=== PATIENT | female | born 1950 | race Caucasian/White ===

== ENCOUNTER → 2019-07-03 08:30 | Outpatient (BNVA) | payer MEDICARE, OTHER, SELFPAY | PROVIDERS: Family Provider Family Medicine; Visit Provider Family Medicine | DX: E78.5 Hyperlipidemia, unspecified (principal); J44.9 Chronic obstructive pulmonary disease, unspecified; N18.9 Chronic kidney disease, unspecified; R73.03 Prediabetes; E78.2 Mixed hyperlipidemia; I12.9 Hypertensive chronic kidney disease with stage 1 through stage 4 chronic kidney disease, or unspecified chronic kidney disease; N18.3 Chronic kidney disease, stage 3 (moderate); I73.9 Peripheral vascular disease, unspecified | CPT/HCPCS: 80053; 80061; 83036; 85025 ==

== ENCOUNTER 2019-09-07 08:27 | Outpatient (CLI) | payer MEDICARE, OTHER, SELFPAY ==
--- NOTE | 2019-09-07 08:45 | USCV_ITS ---
Sofia Velasquez Age: 68 Gender: F : 1950 Exam Date: 09/07/2019 08:58 Ordering Phys: Danie Nash MD (Andy) ([email or web address]) Technologist: Ana Lilia Mchugh [place]am Location: [facility] [place] Ind[place]: STENT IN PLACE HISTORY: KNOWN AAA WITH REPAIR Diameter (cm) AP x Transverse x Length Velocity (cm/s) Waveform Prox Aorta: 2.81 x 2.43 x 39.50 Mid Aorta: 2.44 x 2.56 x 20.70 Distal Aorta: 4.55 x 4.53 x 7.57 26.70 Right Iliac Prox: 1.50 x 1.74 x 45.50 Left Iliac Prox: 1.69 x 1.67 x 46.20 Stent Prox Landing x x Aneurysmal Sac Max x x Lt Lat Sac Dim Rt Lat Sac Dim Stent Dist Landing x x Right Iliac Stent x x Left Iliac Stent x x Right Renal Art Left Renal Art FINDINGS: Patent aortic stent graft. Aneurysmal sac in the distal abdominal aorta measuring 4.55 x 4.53 cm Moderate diffuse plaques in the abdominal aorta Left iliac artery measuring 1.69 x 1.67 cm and the right iliac, 1.5 x 1.74 cm CONCLUSIONS 1. Patent aortic stent graft 2. Aneurysm sac in the distal aorta measuring 4.55 x 4.53 cm 3. No evidence of endoleak. 4. Ectatic proximal common iliac arteries bilaterally. Compared to the study from 06/13/2018, the aortic stent graft appears to be new. No significant change in the aneurysm size Dr Ryan Avila MD [facility] (Electronically Signed) Final Date: 07 September 2019 20:29 S
== END 2019-09-07 08:28 | disposition home or self-care (01) ==
LOC: US 08:28
PROVIDERS: PCP Family Medicine; Visit Provider Thoracic Surgery (Cardiothoracic Vascular Surgery)
DX: I71.4 Abdominal aortic aneurysm, without rupture (principal)
CPT/HCPCS: 76706

== ENCOUNTER → 2019-09-18 09:30 | Outpatient (BNVA) | payer MEDICARE, OTHER, SELFPAY | PROVIDERS: PCP Family Medicine; Visit Provider Family Medicine | DX: N18.3 Chronic kidney disease, stage 3 (moderate) (principal); Z79.899 Other long term (current) drug therapy | CPT/HCPCS: 80053; 81001; 85025; 87077; 87086; 87186 ==

== ENCOUNTER → 2019-12-05 09:12 | Outpatient (BNVA) | payer MEDICARE, OTHER, SELFPAY | PROVIDERS: PCP Family Medicine; Visit Provider Family Medicine | DX: E11.9 Type 2 diabetes mellitus without complications (principal); E78.2 Mixed hyperlipidemia; I10 Essential (primary) hypertension; N39.0 Urinary tract infection, site not specified | CPT/HCPCS: 80053; 80061; 81000; 83036; 87077; 87086; 87184 ==

== ENCOUNTER → 2020-03-05 10:33 | Outpatient (BNVA) | payer MEDICARE, OTHER, SELFPAY | PROVIDERS: PCP Family Medicine; Visit Provider Family Medicine | DX: N30.01 Acute cystitis with hematuria (principal); E11.9 Type 2 diabetes mellitus without complications; I10 Essential (primary) hypertension; E66.9 Obesity, unspecified; I71.4 Abdominal aortic aneurysm, without rupture; N18.30 Chronic kidney disease, stage 3 unspecified | CPT/HCPCS: 81000; 87086 ==

== ENCOUNTER → 2020-08-19 10:37 | Outpatient (BNVA) | payer MEDICARE, OTHER, SELFPAY | PROVIDERS: PCP Family Medicine; Referring Provider Family Medicine; Visit Provider Family Medicine | DX: E11.9 Type 2 diabetes mellitus without complications (principal); E78.2 Mixed hyperlipidemia; I10 Essential (primary) hypertension | CPT/HCPCS: 80053; 80061; 83036; 83721 ==

== ENCOUNTER 2020-11-08 08:23 | Outpatient (CLI) | payer MEDICARE, OTHER, SELFPAY ==
--- NOTE | 2020-11-08 09:00 | CT_ITS ---
WS: [id number] CTA ABDOMEN PELVIS TECHNIQUE: Noncontrast plus contrast enhanced CTA of the abdominal aorta with coronal and sagittal re formatted images and additional MIP Images. CLINICAL INFORMATION: aaa COMPARISON: DLP: 2246.[address] scans at [facility] use at least one of these dose optimization techniques: automated e xposure control; mA and/or kV adjustment per patient size (includes targeted exams where dose is matc hed to clinical indication); or iterative reconstruction. FINDINGS: Again seen is the infrarenal abdominal aortic aneurysm with peripheral mural thrombus. Endovascular a ortic graft with biiliac extension. Excluded aneurysm sac has decreased in size today. Today this nelson sures approximately 3.6 x 3.7 cm cm AP by transverse compared to 4.8 x 4.8 cm previous. Tiny eccentri c outpouching along the distal aortic graft eccentric to the right consistent with a tiny type III ju nctional endoleak. No evidence of contrast staining in the excluded aneurysm sac on the delayed imagi ng. Moderate aortic atheromatous disease involving the lower thoracic and upper abdominal aorta with theresa pheral irregular mural thrombus. Celiac and SMA are patent. Renal arteries are patent. Emphysematous changes in the lung bases. Normal liver. Normal spleen. Small esophageal hiatal hernia. Normal renal parenchymal enhancement. No hydronephrosis. Small bilateral renal cysts. Tiny fat-conta ining umbilical hernia. Grade 1 anterolisthesis L4 on L5. CT/CT angio abdomen pelvis [id number] IMPRESSION: 1. Prior postoperative changes aortic endograft repair with biiliac extension. 2. Excluded aneurysm sac is decreased in size today measuring 3.7 x 3.6 cm com pared to 4.8 x 4.8 cm previous. 3. Tiny right eccentric outpouching in the distal graft consistent with a tiny type III endoleak. Recommend continued surveillance. 4. Celiac and SMA are patent. Renal arteries are patent. 5. Small esophageal hiatal hernia. 6. No other significant changes from previous.
[2020-11-08 09:26] LABS: Blood Urea Nitrogen 22 mg/dL (8-23)
[2020-11-08] MEDS: iodixanol 320 mg/mL 100mL Btl IV (09:40)
== END 2020-11-08 08:24 | disposition home or self-care (01) ==
PROVIDERS: PCP Family Medicine; Visit Provider Thoracic Surgery (Cardiothoracic Vascular Surgery)
DX: I71.4 Abdominal aortic aneurysm, without rupture (principal); K44.9 Diaphragmatic hernia without obstruction or gangrene
CPT/HCPCS: 74174; 82565; 84520; Q9967

== ENCOUNTER 2021-07-28 16:53 | Emergency (ER) | payer MEDICARE, OTHER, SELFPAY ==
[2021-07-28 17:04] VITALS: BP 213/106; PULSE 76; RESP 18; TEMP 36.8; O2SAT 99; BMI 32.9
--- NOTE | 2021-07-28 17:19 | ECG_ITS ---
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 Measurements Intervals [place] Rate: 78 P: 42 AL: 187 QRS: -36 QRSD: 97 T: -3 QT: 402 QTc: 458 Interpretive Statements SINUS RHYTHM WITH OCCASIONAL ECTOPIC PREMATURE COMPLEXES LEFT AXIS DEVIATION [QRS AXIS < -30] Compared to ECG 10/10/2018 11:46:18 No significant changes Electronically Signed On 07-29-2021 17:56:22 CDT by Chi Alexandre M.D. [id number]
--- NOTE | 2021-07-28 17:24 | USR_ITS ---
PROCEDURE INFORMATION: Exam: US Duplex Scan of Aorta, Inferior Vena Cava, Iliac Vasculature, or Bypass Grafts, Limited Exam date and time: 07/28/2021 5:47 PM Age: 70 years old Clinical indication: Abdominal pain; Acute; Prior surgery; Surgery date: 6+ months; Surgery type: Ao stent; Additional info: HX anuerysm repair TECHNIQUE: Imaging protocol: Real-time duplex ultrasound scan of the Aorta, IVC, iliac vasculature, or bypass grafts in the abdomen with color Doppler flow and spectral waveform analysis with image documentation. Limited or unilateral exam. COMPARISON: 11/08/2020 CTA of the abdomen and pelvis FINDINGS: Aorta: Atherosclerotic changes are again seen in the visualized abdominal aorta. A graft is present in the infrarenal abdominal aorta, which is patent. Mild aneurysmal dilatation of the distal abdominal aorta is noted measuring up to 3 cm. Peak systolic velocities in the abdominal aorta are is follows: proximal = 70 cm/s, mid = 66 cm/s, distal = 33 cm/s. Common iliac arteries: The left common iliac artery peak velocity is 36 cm/s, and the right common iliac artery peak velocity is 111 cm/s. Mild ectasia of the right common iliac artery is noted measuring up to 2.1 cm. Hepatic veins: Arterial sampling in the right kidney shows a peak velocity of 78 cm/s, and in the left kidney demonstrate a peak velocity of 126 cm/s. Other findings: Peak flow velocities in the right and left posterior tibial arteries are both approximately 49 cm/s. Bilateral posterior tibial arteries demonstrate biphasic white patterns. US/[place] [id number] IMPRESSION: 1. Atherosclerosis. An aortic graft is again noted. Evaluation for bypass graft leak is limited. Consider CT angiogram for further assessment. 2. Atherosclerosis and peripheral arterial disease.
--- NOTE | 2021-07-28 17:24 | XRR_ITS ---
PROCEDURE INFORMATION: Exam: XR Chest Exam date and time: 07/28/2021 6:26 PM Age: 70 years old Clinical indication: Dyspnea; Additional info: Dyspnea/cough TECHNIQUE: Imaging protocol: XR of the chest. Views: 1 view. COMPARISON: CR Chest 2 views* [id number] 10/10/2018 12:04 PM FINDINGS: Lungs: The lungs are clear. Pleural spaces: Unremarkable. No pleural effusion. No pneumothorax. Heart/Mediastinum: The heart is normal in size. The aorta is mildly tortuous. Bones/joints: Unremarkable. XR/XR chest 1V portable [id number] IMPRESSION: No acute cardiopulmonary abnormality.
--- NOTE | 2021-07-28 17:26 | ED_ITS ---
Documented by User: Cholo Cruz DO 08/06/21 17:26 HPI - Abdominal Pain General: Chief Complaint: Abdominal Pain Stated Complaint: severe abdominal pain/headache Time Seen by Provider: 07/28/21 17:11 Source: patient Mode of arrival: ambulatory Limitations: no limitations History of Present Illness: 70-year-old female presents emergency room with abdominal pain and headache. She has history of abdominal aortic aneurysm which was repaired several years ago chills as very poorly controlled blood pressure patient is a smoker as well. She has had endoleak in the past. She did take all of her antihypertensives today despite this blood pressure is markedly elevated. She denies any chest pain or shortness of breath MD elicited complaint: abdominal pain Pertinent past history: other (History of AAA repair) Onset (ago): hour(s) Pain Consistency: constant Location: Diffuse Severity: moderate Quality: cramping Radiation: none Migration to: no migration Exacerbating factors: nothing Relieving factors: nothing Associated Symptoms: Reports anorexia, GI cramping, dyspepsia and poor appetite; Denies belching, bloating, change in bowel habits, change in stool character, chills, coffee ground emesis, constipation, diarrhea, dysuria, excessive flatus, fever(s), heartburn, hematochezia, hematuria, hematemesis, fecal incontinence, loose stools, melena, nausea, syncope and vomiting Review of Systems Const: Denies: fever(s), chills, fatigue or malaise ENMT: Denies: throat pain, ear or mastoid pain, nasal discharge or nasal co ngestion Card: Denies: syncope Resp: Denies: dyspnea, productive cough or non-productive cough GI: Reports: GI cramping; Denies: nausea, vomiting, hematemesis, coffee ground emesis, heartburn, diarrhea, constipation, bloating, belching, excessive flatus, fecal incontinence, change in bowel habits, change in stool character, hematochezia or melena : Denies: dysuria or hematuria Skin/Breast: Denies: rash or pruritus PFSH ED PFSH: Medical History Abdominal aortic aneurysm Status post repair with aortic stent graft September 2018 CKD (chronic kidney disease) Essential hypertension History of breast cancer Hyperlipidemia PAD (peripheral artery disease) Bilateral SFA occlusions Prediabetes Pulmonary emphysema Tobacco abuse Type 2 diabetes mellitus Surgical History H/O angioplasty H/O lumpectomy RIGHT SIDE H/O mastectomy RIGHT SIDE H/O tubal ligation H/O: hysterectomy S/P AAA repair S/P cholecystectomy Family History Father Stroke Hypertension Diabetes Hyperlipidemia Mother Stroke Hypertension Diabetes Cancer Hyperlipidemia Social History Quit status (tobacco): not considering quitting Second hand smoke exposure: No Alcohol intake: never Desire information about alcohol rehabilitation?: No Desire information about substance/drug rehabilitation?: No Household members: spouse Marital status: Current occupational status: retired Current occupation: [employer] History of recent travel: No Current gender identity: Female Female Reproductive History: Spontaneous abortions: No Physical Exam Const: COMMON NORMALS: no acute distress GENERAL APPEARANCE: cooperative and comfortable ORIENTATION/CONSCIOUSNESS: Yes awake, Yes oriented to person, Yes oriented to place and Yes oriented to time HENMT: COMMON NORMALS: normocephalic, atraumatic and hearing grossly normal bilaterally HEAD & SCALP: normocephalic and atraumatic Neck/C-Spine: COMMON NORMALS: no JVD Lymph: LYMPHATIC: no lymphadenopathy noted and no lymphedema noted Resp: COMMON NORMALS: normal respiratory effort, No retractions, No use of accessory muscles and clear to auscultation bilaterally AUSCULTATION: clear to auscultation bilaterally Cardio: COMMON NORMALS: no JVD, regular rate, regular rhythm and No murmurs present (Cardio) RATE: regular rate RHYTHM: regular rhythm GI: COMMON NORMALS: Soft to palpation and No hepatosplenomegaly present AUSCULTATION: Yes normoactive bowel sounds PALPATION: Yes Soft to palpation, No Tenderness to palpation present (GI), No Guarding due to palpation present (GI) and Yes No hepatosplenomegaly present Extremity: COMMON NORMALS: normal to inspection, capillary refill normal, no clubbing, cyanosis or edema, no calf tenderness and no pedal edema Neuro: SENSORIUM/ORIENTATION: Yes oriented to person, Yes oriented to place and Yes oriented to time Skin: COMMON NORMALS: no rashes or lesions noted GENERAL SKIN EXAM: no rashes or lesions noted Course Vital Signs: Vital signs: Vital Signs Temperature 98.2 F 07/28/21 17:04 Pulse Rate 80 07/28/21 22:33 Respiratory Rate 16 07/28/21 22:33 Blood Pressure 157/92 07/28/21 22:33 Pulse Oximetry 99 07/28/21 22:33 MDM - Abdominal Pain Medical Decision Making Care signed out to Dr. House at change of shift. See final notes for diagnosis and disposition. Lab Data : 07/28/21 17:40 07/28/21 17:40 Labs/Radiology: Radiology Impressions Aorta Ultrasound 07/28/21 17:24 IMPRESSION: 1. Atherosclerosis. An aortic graft is again noted. Evaluation for bypass graft leak is limited. Consider CT angiogram for further assessment. 2. Atherosclerosis and peripheral arterial disease. Chest X-Ray 07/28/21 17:24 IMPRESSION: No acute cardiopulmonary abnormality. Abdomen/Pelvis CTA 07/28/21 18:22 IMPRESSION: 1. 4 cm infrarenal abdominal aortic aneurysm without rupture. 2. Patent aortic bilateral iliac artery endovascular stent. 3. Severe fatty infiltration of the liver. Laboratory Results WBC 8.5 10^3/uL (4.0-10.0) 07/28/21 17:40 RBC 4.73 10^6/uL (4.1-5.3) 07/28/21 17:40 Hgb 15.0 g/dL (11.5-15.3) 07/28/21 17:40 Hct 44.0 % (37.0-47.0) 07/28/21 17:40 MCV 93.0 fl (81-99) 07/28/21 17:40 MCH 31.7 pg (28.0-34.0) 07/28/21 17:40 MCHC 34.1 g/dL (30.0-36.0) 07/28/21 17:40 RDW 12.3 % (12.1-15.1) 07/28/21 17:40 Plt Count 234 10^3/cmm (130-400) 07/28/21 17:40 MPV 10.4 fL (7.4-10.4) 07/28/21 17:40 Neut % (Auto) 70.0 % 07/28/21 17:40 Lymph % (Auto) 20.6 % 07/28/21 17:40 [place] % (Auto) 7.1 % 07/28/21 17:40 Eos % (Auto) 1.4 % 07/28/21 17:40 Baso % (Auto) 0.7 % 07/28/21 17:40 Neut # (Auto) 5.93 10^3/uL (1.8-7.7) 07/28/21 17:40 Lymph # (Auto) 1.8 10^3/uL (0.8-4.8) 07/28/21 17:40 [place] # (Auto) 0.6 10^3/uL (0.2-0.9) 07/28/21 17:40 Eos # (Auto) 0.1 10^3/uL (0.0-0.8) 07/28/21 17:40 Baso # (Auto) 0.1 10^3/uL (0.0-0.1) 07/28/21 17:40 Nucleated RBC % (auto) 0 % 07/28/21 17:40 Nucleated RBCs # 0.0 /100WBC 07/28/21 17:40 Sodium 131 mmol/L (136-145) L 07/28/21 17:40 Potassium 4.1 mmol/L (3.5-5.1) 07/28/21 17:40 Chloride 96 mmol/L (98-107) L 07/28/21 17:40 Carbon Dioxide 20 mmol/L (22-29) L 07/28/21 17:40 Anion Gap 19.1 (5-19) H 07/28/21 17:40 BUN 16 mg/dL (8-23) 07/28/21 17:40 Creatinine 1.0 mg/dL (0.5-0.9) H 07/28/21 17:40 GFR Calculation Not Reportable 07/28/21 17:40 Glucose 131 mg/dL (65-115) H 07/28/21 17:40 Calculated Osmolality 275 mOsm/kg (285-295) L 07/28/21 17:40 Calcium 9.8 mg/dL (8.5-10.5) 07/28/21 17:40 Total Bilirubin 0.3 mg/dL (0.15-1.2) 07/28/21 17:40 AST 39 U/L (0-32) H 07/28/21 17:40 ALT 27 U/L (0-33) 07/28/21 17:40 Alkaline Phosphatase 102 IU/L (35-105) 07/28/21 17:40 Troponin T Baseline 13 ng/L (0-10) H 07/28/21 17:40 Troponin T 120 Minute 11.61 ng/L (0-10) H 07/28/21 19:35 Delta Troponin T -1.39 ABS# (0-10) L 07/28/21 19:35 Total Protein 7.7 g/dL (6.6-8.7) 07/28/21 17:40 Albumin 4.3 g/dL (3.5-5.2) 07/28/21 17:40 Globulin 3.4 g/dL (1.3-4.6) 07/28/21 17:40 Lipase 50 U/L (13-60) 07/28/21 17:40 Urine Color Yellow (Yellow) 07/28/21 17:41 Urine Appearance Clear (CLEAR) 07/28/21 17:41 Urine pH 6 (5-7) 07/28/21 17:41 Ur Specific [place] 1.015 (1.005-1.030) 07/28/21 17:41 Urine Protein 1+ (Negative) H 07/28/21 17:41 Urine Glucose (UA) Norm (Normal) 07/28/21 17:41 Urine Ketones Negative (Negative) 07/28/21 17:41 Urine Blood Neg (Negative) 07/28/21 17:41 Urine Nitrate Negative (Negative) 07/28/21 17:41 Urine Bilirubin Neg (Negative) 07/28/21 17:41 Urine Urobilinogen Norm mg/dL (Negative) 07/28/21 17:41 Ur Leukocyte Esterase Negative (Negative) 07/28/21 17:41 Urine RBC 0-4 /hpf (0-2) H 07/28/21 17:41 Urine WBC 10-15 /hpf (0-5) H 07/28/21 17:41 Ur Squamous Epith Cells 0-4 /hpf (0-5) H 07/28/21 17:41 Amorphous Sediment Not Reportable 07/28/21 17:41 Urine Bacteria 4+ /hpf (NONE) H 07/28/21 17:41 Urine Mucus 1+ /hpf 07/28/21 17:41 Discharge Plan Discharge Patient Disposition: Home Clinical Impression: Abdominal pain, Dehydration, Bacteriuria Condition: Stable Prescriptions: New Protonix 40 mg tablet,delayed release (DR/EC) 40 mg PO BID 14 Days Qty: 28 0RF ondansetron 4 mg tablet,disintegrating 4 mg PO TID PRN (Reason: nausea and vomiting) Qty: 15 0RF No Action atorvastatin 40 mg tablet 40 mg PO DAILY 90 Days Qty: 90 3RF lisinopril-hydrochlorothiazide 20-12.5 mg tablet 1 tab PO BID 90 Days Qty: 180 3RF garlic 100 mg Tablet 100 mg PO DAILY 0RF Aspir-81 81 mg Tablet,Delayed Release (Dr/Ec) 81 mg PO DAILY 0RF PreserVision AREDS 7,160 unit- 113 mg-100 unit Tablet 2 tab PO BID 0RF Rx Instructions: administer with AM and PM meals Centrum Silver Women 8 mg iron-400 mcg-300 mcg Tablet 1 tab PO DAILY 0RF red yeast rice 600 mg Tablet 600 mg PO DAILY 0RF Rx Instructions: give with meal/snack Discharge Orders: Discharge ED (Routine); Ordered 07/28/21 Ordered By: Keyon House Referrals: Sherry Etienne MD [Primary Care Provider] - Discharge Diet: Advance as tolerated and Clear Liquid Discharge Activity: Increase activity as tolerated Patient Instructions: Urinary Tract Infection in Women (ED), Abdominal Pain (ED), Opioid Safety Activity Restrictions/Additional Instructions: Thank you for visiting the emergency department. You were seen and evaluated for abdominal pain as well as high blood pressure. The exact cause of your symptoms is unclear as no clear source was identified on CT scan. You were found to have bacteria in your urine which may be indicative of urinary tract infection which will be treated. Please follow-up with your primary care provider. Given improvement with treatment in the emergency department I recommend follow-up this week for adjustment of blood pressure medications, pain may increase blood pressure and therefore I am hesitant to prescribe new medication. Please return to the emergency department for worsening symptoms or anything else that you are concerned about and feel needs emergency department evaluation. Sign Out Sign Out Data: Patient Sign Out occurred on 07/28/21 at 18:41. Patient's care was discussed, and care was transferred from to Keyon House MD. Coding Level of Care Code ED Check Writing Machine Operator for Chg Fwd Exam Comprehensive Documented by User: Keyon House MD 08/10/21 22:56 HPI - Abdominal Pain General: Chief Complaint: Abdominal Pain Stated Complaint: severe abdominal pain/headache Time Seen by Provider: 07/28/21 17:11 PFSH ED PFSH: Medical History Abdominal aortic aneurysm Status post repair with aortic stent graft September 2018 CKD (chronic kidney disease) Essential hypertension History of breast cancer Hyperlipidemia PAD (peripheral artery disease) Bilateral SFA occlusions Prediabetes Pulmonary emphysema Tobacco abuse Type 2 diabetes mellitus Surgical History H/O angioplasty H/O lumpectomy RIGHT SIDE H/O mastectomy RIGHT SIDE H/O tubal ligation H/O: hysterectomy S/P AAA repair S/P cholecystectomy Family History Father Stroke Hypertension Diabetes Hyperlipidemia Mother Stroke Hypertension Diabetes Cancer Hyperlipidemia Social History Quit status (tobacco): not considering quitting Second hand smoke exposure: No Alcohol intake: never Desire information about alcohol rehabilitation?: No Desire information about substance/drug rehabilitation?: No Household members: spouse Marital status: Current occupational status: retired Current occupation: [employer] History of recent travel: No Current gender identity: Female Course Vital Signs: Vital signs: Vital Signs Temperature 98.2 F 07/28/21 17:04 Pulse Rate 80 07/28/21 22:33 Respiratory Rate 16 07/28/21 22:33 Blood Pressure 157/92 07/28/21 22:33 Pulse Oximetry 99 07/28/21 22:33 MDM - Abdominal Pain Medical Decision Making Care signed out to Dr. House at change of shift. See final notes for diagnosis and disposition. Care handoff received from Dr. Cruz pending completion of ED evaluation. Laboratory studies with no leukocytosis, normal hemoglobin. Metabolic panel with some evidence of dehydration. Delta troponin negative. Urinalysis with questionable evidence of urinary tract infection. Culture pending. Negative ch est x-ray. No reported evidence of endoleak on CTA, infrarenal abdominal aortic aneurysm without rupture. Discussed results of evaluation with the patient. Blood pressure improved and symptoms improved. Patient comfortable with discharge. Discussed prescriptions and return cautions. Keyon House MD Emergency Medicine Lab Data : 07/28/21 17:40 07/28/21 17:40 Labs/Radiology: Radiology Impressions Aorta Ultrasound 07/28/21 17:24 IMPRESSION: 1. Atherosclerosis. An aortic graft is again noted. Evaluation for bypass graft leak is limited. Consider CT angiogram for further assessment. 2. Atherosclerosis and peripheral arterial disease. Chest X-Ray 07/28/21 17:24 IMPRESSION: No acute cardiopulmonary abnormality. Abdomen/Pelvis CTA 07/28/21 18:22 IMPRESSION: 1. 4 cm infrarenal abdominal aortic aneurysm without rupture. 2. Patent aortic bilateral iliac artery endovascular stent. 3. Severe fatty infiltration of the liver. Laboratory Results WBC 8.5 10^3/uL (4.0-10.0) 07/28/21 17:40 RBC 4.73 10^6/uL (4.1-5.3) 07/28/21 17:40 Hgb 15.0 g/dL (11.5-15.3) 07/28/21 17:40 Hct 44.0 % (37.0-47.0) 07/28/21 17:40 MCV 93.0 fl (81-99) 07/28/21 17:40 MCH 31.7 pg (28.0-34.0) 07/28/21 17:40 MCHC 34.1 g/dL (30.0-36.0) 07/28/21 17:40 RDW 12.3 % (12.1-15.1) 07/28/21 17:40 Plt Count 234 10^3/cmm (130-400) 07/28/21 17:40 MPV 10.4 fL (7.4-10.4) 07/28/21 17:40 Neut % (Auto) 70.0 % 07/28/21 17:40 Lymph % (Auto) 20.6 % 07/28/21 17:40 [place] % (Auto) 7.1 % 07/28/21 17:40 Eos % (Auto) 1.4 % 07/28/21 17:40 Baso % (Auto) 0.7 % 07/28/21 17:40 Neut # (Auto) 5.93 10^3/uL (1.8-7.7) 07/28/21 17:40 Lymph # (Auto) 1.8 10^3/uL (0.8-4.8) 07/28/21 17:40 [place] # (Auto) 0.6 10^3/uL (0.2-0.9) 07/28/21 17:40 Eos # (Auto) 0.1 10^3/uL (0.0-0.8) 07/28/21 17:40 Baso # (Auto) 0.1 10^3/uL (0.0-0.1) 07/28/21 17:40 Nucleated RBC % (auto) 0 % 07/28/21 17:40 Nucleated RBCs # 0.0 /100WBC 07/28/21 17:40 Sodium 131 mmol/L (136-145) L 07/28/21 17:40 Potassium 4.1 mmol/L (3.5-5.1) 07/28/21 17:40 Chloride 96 mmol/L (98-107) L 07/28/21 17:40 Carbon Dioxide 20 mmol/L (22-29) L 07/28/21 17:40 Anion Gap 19.1 (5-19) H 07/28/21 17:40 BUN 16 mg/dL (8-23) 07/28/21 17:40 Creatinine 1.0 mg/dL (0.5-0.9) H 07/28/21 17:40 GFR Calculation Not Reportable 07/28/21 17:40 Glucose 131 mg/dL (65-115) H 07/28/21 17:40 Calculated Osmolality 275 mOsm/kg (285-295) L 07/28/21 17:40 Calcium 9.8 mg/dL (8.5-10.5) 07/28/21 17:40 Total Bilirubin 0.3 mg/dL (0.15-1.2) 07/28/21 17:40 AST 39 U/L (0-32) H 07/28/21 17:40 ALT 27 U/L (0-33) 07/28/21 17:40 Alkaline Phosphatase 102 IU/L (35-105) 07/28/21 17:40 Troponin T Baseline 13 ng/L (0-10) H 07/28/21 17:40 Troponin T 120 Minute 11.61 ng/L (0-10) H 07/28/21 19:35 Delta Troponin T -1.39 ABS# (0-10) L 07/28/21 19:35 Total Protein 7.7 g/dL (6.6-8.7) 07/28/21 17:40 Albumin 4.3 g/dL (3.5-5.2) 07/28/21 17:40 Globulin 3.4 g/dL (1.3-4.6) 07/28/21 17:40 Lipase 50 U/L (13-60) 07/28/21 17:40 Urine Color Yellow (Yellow) 07/28/21 17:41 Urine Appearance Clear (CLEAR) 07/28/21 17:41 Urine pH 6 (5-7) 07/28/21 17:41 Ur Specific [place] 1.015 (1.005-1.030) 07/28/21 17:41 Urine Protein 1+ (Negative) H 07/28/21 17:41 Urine Glucose (UA) Norm (Normal) 07/28/21 17:41 Urine Ketones Negative (Negative) 07/28/21 17:41 Urine Blood Neg (Negative) 07/28/21 17:41 Urine Nitrate Negative (Negative) 07/28/21 17:41 Urine Bilirubin Neg (Negative) 07/28/21 17:41 Urine Urobilinogen Norm mg/dL (Negative) 07/28/21 17:41 Ur Leukocyte Esterase Negative (Negative) 07/28/21 17:41 Urine RBC 0-4 /hpf (0-2) H 07/28/21 17:41 Urine WBC 10-15 /hpf (0-5) H 07/28/21 17:41 Ur Squamous Epith Cells 0-4 /hpf (0-5) H 07/28/21 17:41 Amorphous Sediment Not Reportable 07/28/21 17:41 Urine Bacteria 4+ /hpf (NONE) H 06/06/22 17:41 Urine Mucus 1+ /hpf 07/28/21 17:41 Discharge Plan Discharge Patient Disposition: Home Clinical Impression: Abdominal pain, Dehydration, Bacteriuria Condition: Stable Prescriptions: New Protonix 40 mg tablet,delayed release (DR/EC) 40 mg PO BID 14 Days Qty: 28 0RF ondansetron 4 mg tablet,disintegrating 4 mg PO TID PRN (Reason: nausea and vomiting) Qty: 15 0RF No Action atorvastatin 40 mg tablet 40 mg PO DAILY 90 Days Qty: 90 3RF lisinopril-hydrochlorothiazide 20-12.5 mg tablet 1 tab PO BID 90 Days Qty: 180 3RF garlic 100 mg Tablet 100 mg PO DAILY 0RF Aspir-81 81 mg Tablet,Delayed Release (Dr/Ec) 81 mg PO DAILY 0RF PreserVision AREDS 7,160 unit- 113 mg-100 unit Tablet 2 tab PO BID 0RF Rx Instructions: administer with AM and PM meals Centrum Silver Women 8 mg iron-400 mcg-300 mcg Tablet 1 tab PO DAILY 0RF red yeast rice 600 mg Tablet 600 mg PO DAILY 0RF Rx Instructions: give with meal/snack Discharge Orders: Discharge ED (Routine); Ordered 07/28/21 Ordered By: Keyon House Referrals: Sherry Etienne MD [Primary Care Provider] - Discharge Diet: Advance as tolerated and Clear Liquid Discharge Activity: Increase activity as tolerated Patient Instructions: Urinary Tract Infection in Women (ED), Abdominal Pain (ED), Opioid Safety Activity Restrictions/Additional Instructions: Thank you for visiting the emergency department. You were seen and evaluated for abdominal pain as well as high blood pressure. The exact cause of your symptoms is unclear as no clear source was identified on CT scan. You were found to have bacteria in your urine which may be indicative of urinary tract infection which will be treated. Please follow-up with your primary care provider. Given improvement with treatment in the emergency department I recommend follow-up this week for adjustment of blood pressure medications, pain may increase blood pressure and therefore I am hesitant to prescribe new medication. Please return to the emergency department for worsening symptoms or anything el se that you are concerned about and feel needs emergency department evaluation. Sign Out Sign Out Data: Patient Sign Out occurred on 07/28/21 at 18:41. Patient's care was discussed, and care was transferred from to Keyon House MD. Coding Level of Care Code ED Check Writing Machine Operator for Chg Fwd Exam Comprehensive
[2021-07-28 17:50] LABS: Basophils # 0.1 10^3/uL (0.0-0.1); Basophils % 0.7 %; Eosinophils # 0.1 10^3/uL (0.0-0.8); Eosinophils % 1.4 %; Lymphocytes # 1.8 10^3/uL (0.8-4.8); Lymphocytes % 20.6 %; Mean Corpuscular HGB Conc 34.1 g/dL (30.0-36.0); Mean Corpuscular Hemoglobin 31.7 pg (28.0-34.0); Mean Platelet Volume 10.4 fL (7.4-10.4); Monocytes # 0.6 10^3/uL (0.2-0.9); Monocytes % 7.1 %; Neutrophils # 5.93 10^3/uL (1.8-7.7); Nucleated Red Blood Cells % 0 %; Platelet Count 234 10^3/cmm (130-400); Red Blood Count 4.73 10^6/uL (4.1-5.3); Red Cell Distribution Width 12.3 % (12.1-15.1); White Blood Count 8.5 10^3/uL (4.0-10.0)
[2021-07-28] MEDS: amlodipine 5 mg Tablet PO (17:50)
[2021-07-28] MEDS: hyDRALAzine 20 mg/mL INJ 1 mL IVP (17:50)
[2021-07-28] MEDS: enalaprilat 1.25 mg/mL Inj IVP (17:53)
[2021-07-28 18:22] LABS: Add Urine Culture? Yes; Add Urine Microscopic? YES; Bacteria Urine 4+ /hpf; Bilirubin Urine Neg (Negative); Blood Urine Neg (Negative); Glucose Urine UA Norm (Normal); Ketones Urine Negative (Negative); Leukocyte Esterase Urine Negative (Negative); Mucus Urine 1+ /hpf; Nitrate Urine Negative (Negative); Protein Urine 1+ (Negative); RBC Urine 0-4 /hpf (0-2); Specific Gravity, Urine 1.015 (1.005-1.030); Squamous Epithelial Cell Urine 0-4 /hpf (0-5); Urine Appearance Clear (CLEAR); Urine Color Yellow (Yellow); Urobilinogen Urine Norm (Negative); pH Urine 6 (5-7)
--- NOTE | 2021-07-28 18:22 | CTR_ITS ---
PROCEDURE INFORMATION: Exam: CTA Abdomen and Pelvis With Contrast Exam date and time: 07/28/2021 8:51 PM Age: 70 years old Clinical indication: Abdominal pain; Acute; Prior surgery; Surgery date: 6+ months; Additional info: Abd pain/hx aaa repair TECHNIQUE: Imaging protocol: Computed tomographic angiography of the abdomen and pelvis with contrast material. 3D rendering (Not supervised by radiologist): MIP and/or 3D reconstructed images were created by the technologist. Radiation optimization: All CT scans at this facility use at least one of these dose optimization techniques: automated exposure control; mA and/or kV adjustment per patient size (includes targeted exams where dose is matched to clinical indication); or iterative reconstruction. Contrast material: OMNIPAQUE 300; Contrast volume: 95 ml; Contrast route: INTRAVENOUS (IV); COMPARISON: CT angio abdomen pelvis [id number] 11/08/2020 9:32 AM RADIATION DOSE METRICS: Total DLP (mGy-cm): 1137.84 FINDINGS: Aorta: 4 cm infrarenal abdominal aortic aneurysm without rupture. Patent aortic bilateral iliac artery endovascular stent. Celiac trunk and mesenteric arteries: No occlusion or significant stenosis. Renal arteries: No occlusion or significant stenosis. Right iliac arteries: No occlusion or significant stenosis. Left iliac arteries: No occlusion or significant stenosis. Veins: One or more calcified pelvic phleboliths. Liver: Severe fatty infiltration of the liver. Gallbladder and bile ducts: Unremarkable. No calcified stones. No ductal dilation. Pancreas: Unremarkable. No mass. No ductal dilation. Spleen: Unremarkable. No splenomegaly. Adrenal glands: Unremarkable. No mass. Kidneys and ureters: Multiple left renal hypodensities with the largest measuring < 1.0 cm, too small to further characterize. One or more focal cortical defects in the right kidney, representing sequela from previous infection or infarction. Right renal hypodensity measuring < 1.0 cm , too small to further characterize. Stomach and bowel: Unremarkable. No obstruction. No mucosal thickening. Appendix: No evidence of appendicitis. Intraperitoneal space: Unremarkable. No free air. No significant fluid collection. Lymph nodes: Unremarkable. No enlarged lymph nodes. Urinary bladder: Unremarkable. No mass. Reproductive: Status post hysterectomy. Bones/joints: Levoscoliosis. Soft tissues: Unremarkable. CT/CT angio abdomen pelvis [id number] IMPRESSION: 1. 4 cm infrarenal abdominal aortic aneurysm without rupture. 2. Patent aortic bilateral iliac artery endovascular stent. 3. Severe fatty infiltration of the liver.
[2021-07-28 18:26] LABS: Troponin(5th) Baseline 13 ng/L (0-10)
[2021-07-28 18:27] LABS: Alanine Aminotransferase 27 U/L (0-33); Albumin Level 4.3 g/dL (3.5-5.2); Alkaline Phosphatase 102 IU/L (35-105); Anion Gap 19.1 (5-19); Aspartate Amino Transferase 39 U/L (0-32); Blood Urea Nitrogen 16 mg/dL (8-23); Calcium 9.8 mg/dL (8.5-10.5); Carbon Dioxide 20 mmol/L (22-29); Chloride 96 mmol/L (98-107); Globulin 3.4 g/dL (1.3-4.6); Glucose 131 mg/dL (65-115); Lipase 50 U/L (13-60); Osmolality Calculated 275 mOsm/kg (285-295); Potassium 4.1 mmol/L (3.5-5.1); Sodium 131 mmol/L (136-145); Total Bilirubin 0.3 mg/dL (0.15-1.2); Total Protein 7.7 g/dL (6.6-8.7)
[2021-07-28 18:42] VITALS: RESP 20; O2SAT 100
[2021-07-28] MEDS: morphine 4 mg/mL SDV 1 mL IVP ×2 (18:42→21:34)
--- NOTE | 2021-07-28 19:01 | PC.NURSE ---
REPORT GIVEN TO [facility].
--- NOTE | 2021-07-28 19:19 | ECG_ITS ---
[facility] Test Date: 2021-07-28 Pat Name: Sofia Velasquez Department: Room: Gender: Female Regulatory Compliance Specialist: : 1950 Requested By: Cholo Adams Order Number: [id number] Magdy MD: Chi Alexandre M.D. Measurements Intervals Kermit Rate: 76 P: 52 MS: 188 QRS: -32 QRSD: 95 T: 0 QT: 390 QTc: 440 Interpretive Statements SINUS RHYTHM LEFT AXIS DEVIATION [QRS AXIS < -30] Compared to ECG 07/28/2021 17:25:43 No significant changes Electronically Signed On 07-29-2021 18:12:29 CDT by Chi Alexandre M.D. [id number]
[2021-07-28 19:57] VITALS: BP 159/79; PULSE 76; RESP 12; O2SAT 98
[2021-07-28 20:08] LABS: Troponin 5 2HR 11.61 ng/L (0-10)
[2021-07-28 20:35] LABS: Troponin 5 2HR Delta -1.39 ABS# (0-10)
[2021-07-28 21:30] VITALS: BP 164/95; PULSE 94; RESP 21; O2SAT 100
[2021-07-28 21:34] VITALS: RESP 20
[2021-07-28 22:33] VITALS: BP 157/92; PULSE 80; RESP 16; O2SAT 99
== END 2021-07-28 22:20 | disposition home or self-care (01) ==
PROVIDERS: Family Medicine; Emergency Provider Emergency Medicine; PCP Family Medicine
DX: E86.0 Dehydration (principal); R10.9 Unspecified abdominal pain; R82.71 Bacteriuria; I12.9 Hypertensive chronic kidney disease with stage 1 through stage 4 chronic kidney disease, or unspecified chronic kidney disease; E11.22 Type 2 diabetes mellitus with diabetic chronic kidney disease; N18.9 Chronic kidney disease, unspecified; Z79.82 Long term (current) use of aspirin
CPT/HCPCS: 71045; 74174; 76706; 80053; 81001; 83690; 84484; 85025; 87077; 87086; 93005; 96374; 96375; 96376; 99285; J0360; J2270; J3490

== ENCOUNTER → 2021-09-22 10:05 | Outpatient (BNVA) | payer MEDICARE, OTHER, SELFPAY | PROVIDERS: PCP Family Medicine; Visit Provider Internal Medicine Cardiovascular Disease | DX: I12.9 Hypertensive chronic kidney disease with stage 1 through stage 4 chronic kidney disease, or unspecified chronic kidney disease (principal); E11.22 Type 2 diabetes mellitus with diabetic chronic kidney disease; F17.210 Nicotine dependence, cigarettes, uncomplicated; N18.30 Chronic kidney disease, stage 3 unspecified; I71.4 Abdominal aortic aneurysm, without rupture; E78.2 Mixed hyperlipidemia | CPT/HCPCS: 99213 ==

== ENCOUNTER → 2021-11-25 10:29 | Outpatient (BNVA) | payer MEDICARE, OTHER, SELFPAY | PROVIDERS: PCP Family Medicine; Visit Provider Family Medicine | DX: I10 Essential (primary) hypertension (principal); E11.9 Type 2 diabetes mellitus without complications; E78.2 Mixed hyperlipidemia | CPT/HCPCS: 80053; 80061; 83036; 83721; 85025 ==

== ENCOUNTER 2021-12-15 13:35 | Outpatient (CLI) | payer MEDICARE, OTHER, SELFPAY ==
[2021-12-15] VITALS (16 sets, daily range): BP systolic 116–183; BP diastolic 65–103; PULSE 65–88; RESP 15–26; TEMP 36.7–36.8; O2SAT 93–99; BMI 32.5
--- NOTE | 2021-12-15 09:00 | XACV_ITS ---
Ht: 157 cm Wt: 78 kg BSA: 1.88 m2 Any Known Allergies: Other Gender: Female : 1950 Exam Type: Invasive Peripheral Vascular Procedure(s): Procedure Description: Peripheral Cath Diagnostic Procedure Procedure Description: Lower extremities' angiography Exam Priority: Routine Lower Extremity Diagnostic Findings Patient has known peripheral arterial disease with prior interventions to the right leg. She has stents from beginning to end in the right superficial femoral artery. She has presented with claudication again. Today she was brought in for diagnostic purposes primarily. Since her last intervention over 2 years ago she has had an abdominal aortic stent graft placed which will complicate catheter placement and may even prevent intervention via the groins. On the left, an attempt was made to place a wire around the aortic bifurcation. Sheath was placed in the left common femoral artery but a wire could not be placed due to the existence of the stent graft. Angiography of the left leg was obtained. A sheath was then placed on the right for purposes of angiography of the right lower extremity. Angiography of the left lower extremity reveals a normal left common iliac, left external iliac, left common femoral. The profunda femoris is normal. The superficial femoral artery is occluded in the midportion. There is collateral flow from the profunda femoris to the popliteal. The popliteal is normal and patent. There are also some minimal collaterals from the distal end of the occluded SFA. There is two-vessel runoff below the left leg. This consists of the posterior tibial artery and the peroneal artery. The anterior tibial artery is occluded several millimeters after its origin. On the right the common iliac is normal. The external iliac is also normal. The profunda femoris is normal. The superficial femoral artery is occluded shortly after its origin. This exists throughout the entire length of the stents that are placed in the SFA. The vessel reconstitutes at the beginning portion of the popliteal which is normal. There is also three-vessel runoff below the right knee. There is an extensive collateral network that originates in the profunda femoris. Conclusions Bilateral SFA occlusions with two-vessel runoff below the left knee and three-vessel runoff below the right knee. Right superficial femoral artery stents completely occluded. Recommendations Several choices exist. Due to the existence of the abdominal aortic stent graft there is no ability to intervene from above. 1 could attempt intervention from both popliteals. Otherwise lower extremity femoral-popliteal bypass would be indicated. Hemodynamic Data Phase:Rest AO : 105.0 / 52.0 ( 71.0 ) @ 4:12:00 PM Access Site Site: Left Femoral artery Sheath Size: 6 Fr Hemost... Method: Suture Hemost... Success: Successful Site: Right Femoral artery Sheath Size: 5 Fr Hemost... Method: Suture Hemost... Success: Successful Procedure Details Findings Procedure Consent Obtained. Admit Source: Out Patient. Pre-Procedure Time Out. Identified patient by full name and date of as verbalized by the patient/guarantor. Does the consent match the physician's order: Yes. Accurate & Complete Informed Consent: Yes. Inpatient/Outpatient History & Physical on Chart: Yes. If H&P is completed, is and addenduem needed: Yes; If yes, is the addendum complete: Yes. Visualize and Verify Site with Patient/Guarantor: N/A. Relevant Radiology Images available: N/A. Pre-op teaching completed and patient verbalized understanding. The risks, benefits, and alternatives of sedation and/or procedure were discussed by physician. The patient agrees to continue. Procedure started. Filing Clerk Indications: PVD. Correct patient, site and procedure confirmed by cath team. Current diagnosis: PVD. PERRLA. Strong, equal hand lunch truck operator bilaterally. Lungs clear x 5 lobes. IV Site on Arrival: 20 gauge in the left anticubital. IV Fluids: 0.9% NaCl at KVO. 0 mL infused prior to bobcat driver/labor. Pre Procedural Pulses: bilateral posterior tibial was Doppled. Pre Procedural Pulses: bilateral dorsalis pedis was Absent. Oxygen started at 2liters/min via nasal canula. right groin was prepped with chloroprep then draped in the usual sterile fashion. left groin was prepped with chloroprep then draped in the usual sterile fashion. Baseline sample Acquired. HR: 78 BPM. Physician notified. Physician arrived. Physician scrubbed in. Time out performed with cath team. Lidocaine 1% infiltrated to the left groin. Arterial access obtained. A 5FrFr RIM catheter in over [place] wire. Wire and catheter removed. Left superficial femoral selected and arteriogram with runoff performed @ 10 mL/sec for a total of 30 mL. Lidocaine 1% infiltrated to the right groin. Arterial access obtained. 5Fr dilator out. Unable to advance 6Fr glidesheath. 6Fr dilator in over the access wire. 6Fr dilator out over the wire. 5Fr sheath in over the access wire. Sheath injected in Right common femoral artery and runoff performed @ 10ml/sec for a total of 30 ml. A 5FrFr RIM catheter in over wire. Glidewire inserted. Catheter and wire removed. A Suture was successful obtaining hemostatsis at the Left Femoral artery insertion site. A Suture was successful obtaining hemostatsis at the Right Femoral artery insertion site. Sheath(s) sutured into position with 2-0 silk and sterile 4x4's and Op-site applied over the site. No oozing or signs and symptoms of hematoma noted. Post Procedure: Pulses reassessed and unchanged. PERRLA. Strong, equal hand lunch truck operator bilaterally. No VTE prophylaxis required. Medication's Wasted: Heparin = 1000 u. Total IV fluids: 60 mL. Post-op diagnosis: PVD. Complications: none. Estimated blood loss: 5mL-10mL. Responsiveness - Normal response to verbal stimuli; alert and oriented, PERRLA. Airway - Unaffected, no intervention required; spontaneous ventilation. Circulation: W/N/L, pulses unchanged. Nausea/Vomiting: No. Procedure completed. Patient transferred by bed to ICU. Vital chart was stopped. Procedure Medications Start: 2:57 PM Stop: 2:57 PM Medication: Versed Amount: 1 mg Route: I.V. Start: 2:58 PM Stop: 2:58 PM Medication: Fentanyl Amount: 50 mcg Route: I.V. Start: 3:01 PM Stop: 3:01 PM Medication: Versed Amount: 1 mg Route: I.V. Start: 3:02 PM Stop: 3:02 PM Medication: Fentanyl Amount: 50 mcg Route: I.V. Start: 3:02 PM Stop: 3:02 PM Medication: 0.9% Saline Amount: 75 ml/hr I, the attending physician, have reviewed and verified all procedure medications. Yes, all medications given per verbal order History/Risk Factors Hypertension: Yes Dyslipidemia: Yes Peripheral Arterial Disease (PAD): Yes Obesity: No Renal Disease: No Tobacco Use: Current/Recent(w/in 1 year) Prior Interventions PCI: No CABG: No Valve Surgery: No Report Signatures Finalized by Dr. Elvin Lim MD on 12/15/2021 04:13 PM
[2021-12-15 14:28] LABS: Anion Gap 16.7 (5-19); Blood Urea Nitrogen 26 mg/dL (8-23); Calcium 10.3 mg/dL (8.5-10.5); Carbon Dioxide 24 mmol/L (22-29); Chloride 99 mmol/L (98-107); Glucose 95 mg/dL (65-115); Osmolality Calculated 287 mOsm/kg (285-295); Potassium 3.7 mmol/L (3.5-5.1); Sodium 136 mmol/L (136-145)
--- NOTE | 2021-12-15 14:49 | P.HP_ITS ---
Providers/Chief Complaint Admitting Physician: danielle Primary Care Provider: Sherry Etienne MD Chief Complaint: I73.9 History of Present Illness Sofia Velasquez is a 71 year old female with known peripheral arterial disease. She has had intervention to both legs. In the interim she has had a AAA repair with a stent graft. I saw her at the beginning of September when she came in complaining of both legs hurting again. The right leg is worse than the left leg. She has a history of tobacco abuse, mild chronic kidney disease, breast cancer, dyslipidemia and glucose intolerance. She has COPD. When I saw her we were out of contrast material and so we have postponed the angiogram until now. The only thing that is changed other than her recurrence of claudication is the presence of the AAA stent graft. Review of Systems Narrative: Negative aside from what is in the history of present illness. Medications/Allergies Home Medications Medication Instructions Recorded Confirmed Last Taken Type aspirin 81 mg tablet,delayed 81 mg PO DAILY 07/28/21 12/15/21 12/15/21 06:00 History release 81 mg lisinopril 20 1 tab PO BID 90 days #180 tabs 11/25/21 12/15/21 12/15/21 06:00 Rx mg-hydrochlorothiazide 12.5 mg 1 TAB tablet Allergies Allergy/AdvReac Type Severity Reaction Status Date / Time clopidogrel [From Plavix] Allergy Unknown UNKNOWN Verified 11/25/21 06:13 neomycin Allergy Unknown UNKNOWN Verified 11/25/21 06:13 PFSH Acute PFSH: Medical History (Updated 12/15/21 @ 14:53 by Elvin Lim MD) Abdominal aortic aneurysm Status post repair with aortic stent graft September 2018 CKD (chronic kidney disease) Claudication Essential hypertension History of breast cancer Hyperlipidemia PAD (peripheral artery disease) Bilateral SFA occlusions Prediabetes Pulmonary emphysema Tobacco abuse Type 2 diabetes mellitus Surgical History H/O angioplasty H/O lumpectomy RIGHT SIDE H/O mastectomy RIGHT SIDE H/O tubal ligation H/O: hysterectomy S/P AAA repair S/P cholecystectomy Family History Father Stroke Hypertension Diabetes Hyperlipidemia Mother Stroke Hypertension Diabetes Cancer Hyperlipidemia Social History (Reviewed 11/25/21 @ 06:13 by TOBY Perez Smoking and tobacco status: current every day smoker (1 PPD started smoking at the age of 31) cigarettes Packs smoked per day: 1 Quit status (tobacco): not considering quitting Second hand smoke exposure: No Alcohol intake: never Desire information about alcohol rehabilitation?: No Desire information about substance/drug rehabilitation?: No Household members: spouse Marital status: Current occupational status: retired Current occupation: [employer] History of recent travel: No Current gender identity: Female Female Reproductive History: Spontaneous abortions: No Vitals/I&O/Wt Last Vital Signs Temp 98.0 F 12/15/21 14:09 Pulse 88 12/15/21 14:09 Resp 18 12/15/21 14:09 BP 183/103 12/15/21 14:09 Pulse Ox 97 12/15/21 14:09 O2 Del Method 12/15/21 14:09 Weight last 48 hrs Weight 178 lb Physical Exam Narrative: GENERAL: In general she is awake alert and in no distress. HEENT: Exam within normal limits. NECK: Supple without jugular vein distention. The carotid upstroke is normal without bruits. BACK: Exam normal. LUNGS: Clear. HEART: Regular rate and rhythm. ABDOMEN: Benign without organomegaly or tenderness. EXTREMITIES: No edema. No pulses below the groin. NEUROLOGIC: Exam normal. SKIN: Unremarkable. Data : 12/15/21 14:00 A&P Assessment and plan (1) Type 2 diabetes mellitus: Qualifiers: Diabetes mellitus correction insulin use: without rat exterminator use Diabetes mellitus complication status: without complication Qualified Code(s): E11.9 - Type 2 diabetes mellitus without complications (2) Tobacco abuse: (3) S/P AAA repair: (4) Pulmonary emphysema: (5) PAD (peripheral artery disease): (6) Essential hypertension: (7) Hyperlipidemia: Qualifiers: Hyperlipidemia type: mixed hyperlipidemia Qualified Code(s): E78.2 - Mixed hyperlipidemia (8) CKD (chronic kidney disease): Qualifiers: Chronic kidney disease stage: stage 3 (moderate) Qualified Code(s): N18.3 - Chronic kidney disease, stage 3 (moderate) (9) Claudication: Plan Angiography of both lower extremities. Possible intervention. Attestations Medical Necessity Statement*: Outpatient in a bed. Placed in for elective angiography. Coding Level of Care Code New Pt Acute Under Water Assistant for [facility] Sannad Patient Type New History Detailed Exam Detailed Medical Decision Making Moderate Complexity Diagnoses Type 2 diabetes mellitus E11.9 Diabetes mellitus rat exterminator insulin use: without correction use Diabetes mellitus complication status: without complication Tobacco abuse Z72.0 S/P AAA repair Z98.890; Z86.79 Pulmonary emphysema J43.9 PAD (peripheral artery disease) I73.9 Essential hypertension I10 Hyperlipidemia E78.2 Hyperlipidemia type: mixed hyperlipidemia CKD (chronic kidney disease) N18.3 Chronic kidney disease stage: stage 3 (moderate) Claudication I73.9
[2021-12-15] MEDS: fentaNYL 50 mcg/mL INJ 2mL IVP ×2 (16:23→17:05)
--- NOTE | 2021-12-15 17:30 | PC.NURSE ---
Pt was admitted to ICU with left and right groin sheaths in place. No bruising swelling noted. Right sheath was pulled at 1630 and left was pulled at 1715. Dressing applied to dry, non bleeding sites.
[2021-12-16] VITALS (16 sets, daily range): BP systolic 141–197; BP diastolic 71–111; PULSE 65–83; RESP 12–24; O2SAT 96–97
--- NOTE | 2021-12-16 00:14 | PC.NURSE ---
Patient ambulated @2330 [address] 150'. Catheter dressings remain dry/intact with diminished pedal pulses bilaterally. Tolerated ambulation well with stable vitals HR 83. Bowel movement and multiple voids have been observed. Patient has expressed desire to be unhooked from leads and IV. Patient has been taught on why we need to monitor until discharge. Patient has been offered PRN meds for pain, anxiety/insomnia, as well as nicotine substitutes. Patient has refused these meds and states I will leave as soon as Dr. Lim rounds in the morning . Patient is currently in recliner and expressed dissatisfaction with her stay. Primary dissatisfaction remains with bed comfort, monitor leads, IV and food.
--- NOTE | 2021-12-16 07:25 | P.DS_ITS ---
Discharge Providers Date of Admission: December 15, 2021 Date of Discharge: December 16, 2021 Attending Provider at Admission: danielle Attending Provider at Discharge: Elvin Lim MD Primary Care Provider: Sherry Etienne MD Diagnoses at Discharge Discharge Diagnosis (1) Type 2 diabetes mellitus: Status: Acute Qualifiers: Diabetes mellitus terminal worker insulin use: without terminal worker use Diabetes mellitus complication status: without complication Qualified Code(s): E11.9 - Type 2 diabetes mellitus without complications (2) Tobacco abuse: Status: Acute (3) S/P AAA repair: Status: Acute (4) Pulmonary emphysema: Status: Acute (5) PAD (peripheral artery disease): Status: Acute Permanent problem details: Bilateral SFA occlusions (6) Essential hypertension: Status: Acute (7) Hyperlipidemia: Status: Acute Qualifiers: Hyperlipidemia type: mixed hyperlipidemia Qualified Code(s): E78.2 - Mixed hyperlipidemia (8) CKD (chronic kidney disease): Status: Acute Qualifiers: Chronic kidney disease stage: stage 3 (moderate) Qualified Code(s): N18.3 - Chronic kidney disease, stage 3 (moderate) (9) Claudication: Status: Acute Reason for Visit Reason for Visit: I73.9 Brief History: Sofia has a long history of peripheral arterial disease along with other medical problems to include diabetes, hypertension, chronic kidney disease and tobacco abuse. She has had several interventions to her right superficial femoral artery which has involved stents. The last one was over 2 years ago. At that point the stents were occluded but we were able to open them and perform angioplasty. At that time she had an occluded left SFA but that 1 has never been intervened upon. She came back to me couple months ago in the office with continued pain in both legs, right worse than left. We decided to go in to figure out the extent of the existing vascular disease, recognizing that the AAA stent graft may limit our access and ability to perform any intervention from above. Hospital Course Hospital Course We were unable to pass a catheter around the aortic bifurcation. Therefore, had to place sheaths in both femoral arteries to obtain angiography of both legs. The left superficial femoral artery is occluded as noted previously. It has not changed. She still has a normal popliteal and three-vessel runoff below the left knee. The iliac arteries are normal. On the right, the iliac and femoral arteries are normal. The stents are occluded. The popliteal and arteries below the knee are essentially normal. She has two-vessel runoff below the left knee with the anterior tibial being occluded. I had a long discussion with the patient and her son after this. The only access points now would be her popliteal arteries and perhaps arteries from the arm. The likelihood of getting the right superficial femoral artery open given the occluded stents is fairly low. Even if 1 were able to get them open it would be extremely difficult to keep open. On the left, it would be simpler more than likely to open the SFA and treat it with atherectomy and balloon angioplasty. The other option of course is femoral-popliteal bypass. During our discussion she told me that she has developed a problem with either her back or her hip which causes her significant pain on the right. She states that at about the same time she has to stop walking due to claudication she has to stop due to the hip problem. She has been to physicians and she has not been able to figure out what the problem is in the hip. I gave her the option of simply leaving things the way they were and continuing to treat herself medically. This is especially the case in light of the fact that even if she were to have femoral-popliteal bypass on the right she may still be limited in what she can do based on what ever is wrong with her hip. Plan going forward is for her to come back in 10 days and have both groins checked and have a chemistry panel to assess her renal function since she does have a history of renal insufficiency. She will think about all of this over time but I suggested she consider seeing someone else to figure out what is wrong with the hip. It seems to me as though there is no benefit to going through either another interventional attempt or femoral-popliteal bypass if her hip is as limiting as her claudication. She will think about all of this and let us know. Finally, we had a discussion about the AAA stent graft. She had a CT scan of her abdomen in July which revealed the stent graft is open and there is no obvious leak. Therefore, she does not need any kind of imaging at this point. She canceled her appoint with Dr. Nash. She will schedule another appointment with Dr. Nash in a year. I discussed the results of the CAT scan with her today. Both groins are flat, dry without any bleeding, hematoma or vascular anomaly. She will avoid lifting anything more than 5 pounds for 2 days Physical Exam Narrative: GENERAL: In general she feels well today HEENT: Exam within normal limits. NECK: Supple without jugular vein distention. The carotid upstroke is normal without bruits. BACK: Exam normal. LUNGS: Clear. HEART: Regular rate and rhythm. ABDOMEN: Benign without organomegaly or tenderness. EXTREMITIES: No edema. Both groin entry sites are flat, dry without bleeding, hematoma or vascular anomaly. 2+ femoral pulses. NEUROLOGIC: Exam normal. SKIN: Unremarkable. Discharge Data Studies Completed and Pending Completed Studies During Hospitalization Category Date Time Status RACING BOARD MARKER request for service Routine Exams 12/15/21 09:00 Completed Laboratory Results Sodium 136 mmol/L (136-145) 12/15/21 14:00 Potassium 3.7 mmol/L (3.5-5.1) 12/15/21 14:00 Chloride 99 mmol/L (98-107) 12/15/21 14:00 Carbon Dioxide 24 mmol/L (22-29) 12/15/21 14:00 Anion Gap 16.7 (5-19) 12/15/21 14:00 BUN 26 mg/dL (8-23) H 12/15/21 14:00 Creatinine 1.1 mg/dL (0.5-0.9) H 12/15/21 14:00 GFR Calculation Not Reportable 12/15/21 14:00 Glucose 95 mg/dL (65-115) 12/15/21 14:00 Calculated Osmolality 287 mOsm/kg (285-295) 12/15/21 14:00 Calcium 10.3 mg/dL (8.5-10.5) 12/15/21 14:00 Vitals Last Vital Signs Temp 98.2 F 12/15/21 19:00 Pulse 75 12/16/21 06:00 Resp 14 12/16/21 06:00 BP 170/90 12/16/21 06:00 Pulse Ox 97 12/16/21 00:00 O2 Del Method 12/16/21 00:00 Discharge Plan Discharge Patient Disposition: Home Prescriptions: No Action lisinopril-hydrochlorothiazide 20-12.5 mg tablet 1 tab PO BID 90 Days Qty: 180 1RF aspirin [Aspir-81] 81 mg Tablet,Delayed Release (Dr/Ec) 81 mg PO DAILY Discharge Orders: Discharge Order (Routine); Ordered 12/16/21 Ordered By: Elvin Lim Referrals: Vanessa Pelletier FNP [Nurse Practitioner] - 7-10 days (Check both groins and assess chemistry panel.) Diet: Diabetic Activity: Increase activity as tolerated and Limit activity as instructed Activity Restrictions/Additional Instructions: No lifting over 5 pounds for 2 days. Discharge Attestations Time Spent in Discharge Care*: greater than 30 min Quality Metrics Clinical Quality Measures [ No reported AMI, CVA or VTE this stay] Coding Level of Care Code Established Pt Acute Chg FW DC note Patient Type Established History Detailed Exam Detailed Medical Decision Making Moderate Complexity Diagnoses Type 2 diabetes mellitus E11.9 Diabetes mellitus terminal worker insulin use: without terminal worker use Diabetes mellitus complication status: without complication Tobacco abuse Z72.0 S/P AAA repair Z98.890; Z86.79 Pulmonary emphysema J43.9 PAD (peripheral artery disease) I73.9 Essential hypertension I10 Hyperlipidemia E78.2 Hyperlipidemia type: mixed hyperlipidemia CKD (chronic kidney disease) N18.3 Chronic kidney disease stage: stage 3 (moderate) Claudication I73.9
[2021-12-16] MEDS: aspirin 81 mg EC Tablet PO (07:39)
[2021-12-16] MEDS: hydroCHLOROthiazide 25 mg Tablet 12.5 MG PO (07:40)
[2021-12-16] MEDS: lisinopril 20 mg Tablet PO (07:40)
--- NOTE | 2021-12-16 08:35 | PC.NURSE ---
Discharge instructions given to patient, incision sites c/d/i without hematoma. IV removed. Patient requested to wait at front entrance for her ride. She ambulated there with belongings, accompanied by this nurse. Patient AAO&x4, VSS, no pain or discomfort,
== END 2021-12-16 08:30 | disposition home or self-care (01) ==
LOC: CCL 13:39 → ICU 14:24
PROVIDERS: PCP Family Medicine; Visit Provider Internal Medicine Cardiovascular Disease
DX: I70.203 Unspecified atherosclerosis of native arteries of extremities, bilateral legs (principal); E11.22 Type 2 diabetes mellitus with diabetic chronic kidney disease; I12.9 Hypertensive chronic kidney disease with stage 1 through stage 4 chronic kidney disease, or unspecified chronic kidney disease; N18.30 Chronic kidney disease, stage 3 unspecified; F17.210 Nicotine dependence, cigarettes, uncomplicated; Z98.890 Other specified postprocedural states; Z86.79 Personal history of other diseases of the circulatory system; E78.2 Mixed hyperlipidemia; I10 Essential (primary) hypertension
CPT/HCPCS: 36415; 75716; 80048; 96360; 99152; 99153; C1769; C1887; C1894; J1644; J2250; J3010; J7030; Q9967

== ENCOUNTER → 2021-12-22 09:42 | Outpatient (BNVA) | payer MEDICARE, OTHER, SELFPAY | PROVIDERS: PCP Family Medicine; Visit Provider Nurse Practitioner Family | DX: I73.9 Peripheral vascular disease, unspecified (principal); F17.210 Nicotine dependence, cigarettes, uncomplicated | CPT/HCPCS: 36415; 80048; 99213; 99214 ==

== ENCOUNTER → 2022-01-26 11:40 | Outpatient (BNVA) | payer MEDICARE, OTHER, SELFPAY | PROVIDERS: PCP Family Medicine; Visit Provider Internal Medicine Cardiovascular Disease | DX: I73.9 Peripheral vascular disease, unspecified (principal); Z98.890 Other specified postprocedural states; Z86.79 Personal history of other diseases of the circulatory system; J43.9 Emphysema, unspecified; E78.2 Mixed hyperlipidemia; I12.9 Hypertensive chronic kidney disease with stage 1 through stage 4 chronic kidney disease, or unspecified chronic kidney disease; E11.22 Type 2 diabetes mellitus with diabetic chronic kidney disease; F17.210 Nicotine dependence, cigarettes, uncomplicated; N18.30 Chronic kidney disease, stage 3 unspecified | CPT/HCPCS: 99213 ==

== ENCOUNTER → 2022-08-06 11:07 | Outpatient (BNVA) | payer MEDICARE, OTHER, SELFPAY | PROVIDERS: PCP Family Medicine; Visit Provider Internal Medicine Cardiovascular Disease | DX: I73.9 Peripheral vascular disease, unspecified (principal); Z72.0 Tobacco use; Z98.890 Other specified postprocedural states; Z86.79 Personal history of other diseases of the circulatory system; J43.9 Emphysema, unspecified; E78.2 Mixed hyperlipidemia; I12.9 Hypertensive chronic kidney disease with stage 1 through stage 4 chronic kidney disease, or unspecified chronic kidney disease; E11.22 Type 2 diabetes mellitus with diabetic chronic kidney disease; N18.30 Chronic kidney disease, stage 3 unspecified; I71.40 Abdominal aortic aneurysm, without rupture, unspecified | CPT/HCPCS: 99213 ==

== ENCOUNTER → 2023-01-12 09:16 | Outpatient (BNVA) | payer MEDICARE, OTHER, SELFPAY | PROVIDERS: PCP Family Medicine; Visit Provider Family Medicine | DX: I10 Essential (primary) hypertension (principal); E11.9 Type 2 diabetes mellitus without complications; E78.5 Hyperlipidemia, unspecified; N18.9 Chronic kidney disease, unspecified | CPT/HCPCS: 80053; 80061; 83036; 85025 ==

== ENCOUNTER → 2023-02-04 10:31 | Outpatient (BNVA) | payer MEDICARE, OTHER, SELFPAY | PROVIDERS: PCP Family Medicine; Visit Provider Internal Medicine Cardiovascular Disease | DX: E78.2 Mixed hyperlipidemia (principal); I12.9 Hypertensive chronic kidney disease with stage 1 through stage 4 chronic kidney disease, or unspecified chronic kidney disease; E11.22 Type 2 diabetes mellitus with diabetic chronic kidney disease; N18.30 Chronic kidney disease, stage 3 unspecified; I73.9 Peripheral vascular disease, unspecified; Z98.890 Other specified postprocedural states; Z86.79 Personal history of other diseases of the circulatory system; Z72.0 Tobacco use; J43.9 Emphysema, unspecified | CPT/HCPCS: 99214 ==

== ENCOUNTER → 2023-08-16 13:25 | Outpatient (BNVA) | payer MEDICARE, OTHER, SELFPAY | PROVIDERS: PCP Family Medicine; Visit Provider Internal Medicine Cardiovascular Disease | DX: E78.2 Mixed hyperlipidemia (principal); Z98.890 Other specified postprocedural states; Z86.79 Personal history of other diseases of the circulatory system; Z72.0 Tobacco use; J43.9 Emphysema, unspecified; E11.51 Type 2 diabetes mellitus with diabetic peripheral angiopathy without gangrene; I12.9 Hypertensive chronic kidney disease with stage 1 through stage 4 chronic kidney disease, or unspecified chronic kidney disease; E11.22 Type 2 diabetes mellitus with diabetic chronic kidney disease; N18.30 Chronic kidney disease, stage 3 unspecified | CPT/HCPCS: 99213 ==

== ENCOUNTER → 2023-11-22 09:31 | Outpatient (BNVA) | payer MEDICARE, OTHER, SELFPAY | PROVIDERS: PCP Family Medicine; Visit Provider Family Medicine | DX: I10 Essential (primary) hypertension (principal); E78.2 Mixed hyperlipidemia; E11.9 Type 2 diabetes mellitus without complications; L98.9 Disorder of the skin and subcutaneous tissue, unspecified | CPT/HCPCS: 80053; 80061; 83036 ==

== ENCOUNTER → 2025-02-19 10:52 | Outpatient (BNVA) | payer MEDICARE, OTHER, SELFPAY | PROVIDERS: PCP Family Medicine; Visit Provider Family Medicine | DX: E11.9 Type 2 diabetes mellitus without complications (principal); I10 Essential (primary) hypertension; E78.2 Mixed hyperlipidemia; N18.30 Chronic kidney disease, stage 3 unspecified | CPT/HCPCS: 80053; 80061; 83036; 83721 ==